=== PATIENT | male | born 1955 | race American Indian/Alaskan Native ===

== ENCOUNTER 2021-12-20 15:18 | Emergency (ER) | payer MEDICARE, MEDICAID ==
[2021-12-20 15:34] VITALS: BP 158/82; PULSE 76
[2021-12-20] MEDS ORDERED: Sodium Chloride 0.9% 10 ML Syringe FLUSH PRN (18:24)
[2021-12-20] MEDS ORDERED: Clindamycin Phosphate in D5W 900 MG in Premix Bag 1 BAG IV ONE ×2 (20:11)
[2021-12-20] MEDS ORDERED: Clindamycin HCl 150 MG Cap PO ONE (20:21)
== END 2021-12-20 20:40 | disposition home or self-care (01) ==
LOC: JD.ED 15:18
DX: L03.115 Cellulitis of right lower limb (principal); K21.9 Gastro-esophageal reflux disease without esophagitis; E11.9 Type 2 diabetes mellitus without complications; Z88.0 Allergy status to penicillin; Z99.2 Dependence on renal dialysis; Z79.899 Other long term (current) drug therapy; Z79.4 Long term (current) use of insulin; Z86.73 Personal history of transient ischemic attack (TIA), and cerebral infarction without residual deficits
CPT/HCPCS: 36415; 73630; 80053; 85025; 86140; 99283; A9270

== ENCOUNTER 2022-06-20 07:06 | Emergency (ER) | payer MEDICARE, MEDICAID ==
[2022-06-20] MEDS ORDERED: Ondansetron 4 MG/2 ML SDV IVPUSH ONE (07:43)
[2022-06-20] MEDS ORDERED: HYDROmorphone 0.5 MG/0.5 ML Syringe IVPUSH ONE (07:43)
[2022-06-20] MEDS ORDERED: Sodium Chloride 0.9% 10 ML Syringe FLUSH PRN (07:44)
[2022-06-20] MEDS ORDERED: Sodium Chloride 0.9% 1,000 ML IV SCH (07:45)
[2022-06-20] MEDS ORDERED: 50% Dextrose in Water 50 ML Syringe IVPUSH ONE (08:31)
[2022-06-20 16:51] VITALS: BP 165/89; PULSE 85
== END 2022-06-20 16:45 | disposition home or self-care (01) ==
LOC: JD.ED 07:06
DX: R10.84 Generalized abdominal pain (principal); E11.9 Type 2 diabetes mellitus without complications; Z88.0 Allergy status to penicillin; Z79.899 Other long term (current) drug therapy
CPT/HCPCS: 36415; 74019; 80053; 82947; 85025; 86140; 96361; 96374; 96375; 99284; J1170; J2405; J3490; J7030

== ENCOUNTER 2023-01-04 12:05 | Emergency (ER) | payer MEDICARE, MEDICAID ==
[2023-01-04 12:21] VITALS: PULSE 80
[2023-01-04] MEDS ORDERED: HYDROmorphone 1 MG/ML Syringe IM ONE (12:30)
[2023-01-04] MEDS ORDERED: Ondansetron 4 MG Tab.DIS PO ONE (12:30)
[2023-01-04 12:46] LABS: APPEARANCE,URINE SLT CLOUDY (Clear); BILIRUBIN,URINE 3+ (Negative); COLOR,URINE DARK YELLOW (Yellow); GLUCOSE,URINE TRACE (Negative); KETONES,URINE NEGATIVE (Negative); LEUKOCYTE ESTERASE,URINE NEGATIVE (Negative); NITRITE,URINE NEGATIVE (Negative); OCCULT BLOOD,URINE 2+ (Negative); PROTEIN,URINE 3+ (Negative)
[2023-01-04 12:59] LABS: RBC,URINE 40-50 /hpf (0-5); WBC,URINE 0-5 /hpf (0-5)
[2023-01-04 13:00] LABS: BACTERIA,URINE RARE /hpf (FEW); MUCUS,URINE NOT SEEN /hpf (FEW); SQUAMOUS EPITHELIAL CELLS,UR 0-5 /hpf (0-5)
== END 2023-01-04 14:16 | disposition home or self-care (01) ==
LOC: JD.ED 12:05
DX: N45.3 Epididymo-orchitis (principal); R31.0 Gross hematuria; I10 Essential (primary) hypertension; E11.9 Type 2 diabetes mellitus without complications; Z88.0 Allergy status to penicillin; Z79.899 Other long term (current) drug therapy
CPT/HCPCS: 76870; 81001; 93975; 96372; 99284; A9270; J1170

== ENCOUNTER 2023-02-01 09:35 | Emergency (ER) | payer MEDICARE, MEDICAID ==
[2023-02-01 10:02] VITALS: PULSE 66
[2023-02-01 10:14] LABS: BASOPHILS ABSOLUTE AUTO 0.01 K/mm3 (0.01-0.08); BASOPHILS PERCENT AUTO 0.1 % (0.1-1.2); EOSINOPHILS ABSOLUTE AUTO 0.02 K/mm3 (0.04-0.54); EOSINOPHILS PERCENT AUTO 0.1 (0.8-7.0); HEMATOCRIT 29.5 % (40.1-51.0); HEMOGLOBIN 9.7 gm/dl (13.7-17.5); IMMATURE GRAN ABSOLUTE AUTO 0.04 K/mm3 (0.00-0.10); IMMATURE GRAN PERCENT AUTO 0.2 % (<=1.0); LYMPHOCYTES ABSOLUTE AUTO 0.48 K/mm3 (1.32-3.57); LYMPHOCYTES PERCENT AUTO 2.7 % (21.8-53.1); MEAN CORPUSCULAR HEMOGLOBIN 31.5 pg (25.7-32.2); MEAN CORPUSCULAR HGB CONC 32.9 g/dl (32.2-35.5); MEAN CORPUSCULAR VOLUME 95.8 fl (79.0-92.2); MEAN PLATELET VOLUME 11.6 fl (9.4-12.3); MONOCYTES ABSOLUTE AUTO 0.71 K/mm3 (0.30-0.82); NEUTROPHILS ABSOLUTE AUTO 16.61 K/mm3 (1.78-5.38); NEUTROPHILS PERCENT AUTO 92.9 % (34.0-67.9); PLATELET COUNT,PLT 203 K/mm3 (163-337); RED BLOOD CELL COUNT 3.08 M/mm3 (4.63-6.08); WHITE BLOOD CELL COUNT,WBC 17.87 K/mm3 (4.23-9.07)
[2023-02-01 10:36] LABS: A/G RATIO 0.5 (1-2); ALANINE AMINOTRANSFERASE,ALT 73 U/L (16-63); ALBUMIN 2.3 g/dl (3.4-5.0); ALKALINE PHOSPHATASE 175 U/L (46-116); ANION GAP 20.8 (5-15); ASPARTATE AMNIOTRANSFERASE,AST 141 U/L (15-37); BILIRUBIN TOTAL 1.6 mg/dL (0.2-1.0); BUN/CREATININE RATIO 9.1 (14-18); CALCIUM 7.3 mg/dL (8.5-10.1); CARBON DIOXIDE,CO2 24 mEq/L (21-32); CHLORIDE,CL 96 mEq/L (98-107); ESTIMATED GFR 6 mL/min (>60); GLUCOSE RANDOM 97 mg/dL (70-99); POTASSIUM,K 4.8 mEq/L (3.5-5.1); PROTEIN TOTAL,TP 7.4 g/dl (6.4-8.2); SODIUM,NA 136 mEq/L (136-145)
[2023-02-01 10:48] LABS: SLIDE REVIEW ABNORMAL SMEAR
[2023-02-01 10:49] LABS: BLOOD UREA NITROGEN,BUN 82 mg/dL (7-18)
[2023-02-01 10:50] LABS: C-REACTIVE PROTEIN 16.1 mg/dL (<1.0)
[2023-02-01] MEDS ORDERED: HYDROmorphone 0.5 MG/0.5 ML Syringe IVPUSH ONE (11:42)
[2023-02-01 11:50] LABS: LACTIC ACID 1.7 mmol/L (0.4-2.0)
[2023-02-01] MEDS ORDERED: cefTRIAXone 1 GM in Sodium Chloride 0.9% 100 ML IV ONE (13:24)
[2023-02-01 16:50] VITALS: BP 137/66
== END 2023-02-01 16:35 ==
LOC: JD.ED 09:35
DX: N45.1 Epididymitis (principal); N47.6 Balanoposthitis; E11.622 Type 2 diabetes mellitus with other skin ulcer; L98.499 Non-pressure chronic ulcer of skin of other sites with unspecified severity; I12.0 Hypertensive chronic kidney disease with stage 5 chronic kidney disease or end stage renal disease; E11.22 Type 2 diabetes mellitus with diabetic chronic kidney disease; N18.6 End stage renal disease; K21.9 Gastro-esophageal reflux disease without esophagitis; Z99.2 Dependence on renal dialysis; Z88.0 Allergy status to penicillin; Z86.73 Personal history of transient ischemic attack (TIA), and cerebral infarction without residual deficits; Z79.899 Other long term (current) drug therapy; Z20.822 Contact with and (suspected) exposure to COVID-19
CPT/HCPCS: 36415; 76870; 80053; 83605; 85025; 86140; 87040; 93975; 96365; 96366; 96375; 99285; J0696; J1170; J3490; U0002